=== PATIENT | male | born 1975 | race Two or more races ===

== ENCOUNTER 2024-09-29 14:19 | Emergency (ER) | payer SELFPAY ==
[~2024-09-29] VITALS: Ht 175.3 cm; Wt 81.0 kg
[2024-09-29 14:30] VITALS: O2SAT 99
[2024-09-29 14:36] VITALS: BP 137/93; PULSE 100; RESP 20; TEMP 36.7; O2SAT 99
[2024-09-29 15:55] LABS: BASOPHILS % 0.4 % (0.0-2.0); EOSINOPHILS % 0.8 % (0.0-5.0); HEMATOCRIT. 47.5 % (42.0-52.0); HEMOGLOBIN. 16.3 g/dL (14.0-18.0); LYMPHOCYTES % 15.3 % (20.0-50.0); MEAN CORPUSCULAR HEMOGLOBIN 28.7 pg (28.0-32.0); MEAN CORPUSCULAR HGB CONC 34.3 g/dL (31.0-37.0); MEAN CORPUSCULAR VOLUME 83.7 fL (80.0-94.0); MEAN PLATELET VOLUME 8.8 fl (7.4-10.4); MONOCYTES % 11.6 % (2.0-8.0); NEUTROPHILS % 71.9 % (40.0-76.0); PLATELET 253 x1000/uL (130-400); RED BLOOD CELL COUNT 5.67 mill/uL (4.7-6.1); RED CELL DISTRIBUTION WIDTH 14.4 % (11.6-14.6); WHITE BLOOD COUNT 5.8 x1000/uL (4.5-11.0)
[2024-09-29] MEDS ORDERED: LACTATED RINGERS 1,000 ML IV SCH ×2 (16:00)
[2024-09-29 16:09] LABS: CHLORIDE 101 mEq/L (98-107)
[2024-09-29 16:10] LABS: CARBON DIOXIDE 27 mEq/L (21-32); POTASSIUM 3.7 mEq/L (3.5-5.1); SODIUM 137 mEq/L (136-145)
[2024-09-29 16:11] LABS: CALCIUM 9.7 mg/dL (8.7-10.4)
[2024-09-29 16:16] LABS: GLUCOSE 236 mg/dL (70-105); UREA NITROGEN BLOOD 13 mg/dL (9-23)
[2024-09-29 16:25] LABS: TROPONIN I HIGH SENSITIVITY < 4 ng/L (3.0-53)
[2024-09-29 17:37] LABS: PROTHROMBIN TIME 10.6 sec (9.6-11.0)
== END 2024-09-29 20:50 | disposition left against medical advice (07) ==
LOC: ER 14:19
DX: E11.65 Type 2 diabetes mellitus with hyperglycemia (principal); Z98.890 Other specified postprocedural states; Z87.19 Personal history of other diseases of the digestive system
CPT/HCPCS: 36415; 71045; 80048; 82962; 84484; 85025; 93005; 99285